=== PATIENT | male | born 1980 | race Caucasian/White ===

== ENCOUNTER 2017-03-28 19:24 | Emergency (ER) | payer BC, MEDICAID ==
[2017-03-28 19:36] VITALS: BP 127/97
[2017-03-28] MEDS ORDERED: CLONAZEPAM 1 MG TABLET PO ONE (19:41)
--- NOTE | 2017-03-28 19:46 | ER Document Report ---
ED General - General Chief Complaint: Other Stated Complaint: WITHDRAWL SYMPTOMS Time Seen by Provider: 03/28/17 19:34 Mode of Arrival: Ambulatory Information source: Patient TRAVEL OUTSIDE OF THE [place] IN LAST 30 DAYS: No - HPI Patient complains to provider of: anxiety, benzo withdrawal Onset/Duration: Gradual Quality of pain: No pain Associated symptoms: None Notes: Patient is a 36-year-old male presenting to the emergency room today complaining of anxiety attacks and possible benzodiazepine withdrawal, stating that he was previously prescribed Klonopin 1/2-1 mg 3 times a day by his primary care provider Erica Hernandez, his last prescription was filled on , which was for 90 tablets, he has made those 9 daily tablets last until now, he has a pill bottle with 1 pill remaining in it, but states he is having withdrawal symptoms including anxiety attacks, and crying spells, he denies any suicidal or homicidal ideations, he has seen a psychiatrist years ago but not recently because SCHUYLER Hernandez was taking care of this prescription for him, he reports that he is already a different office as she apparently changed practices and will no longer provide him with a prescription for this medication - Related Data Allergies/Adverse Reactions: saline syringe Adverse Reaction (Intermediate, Uncoded 03/28/17 19:31) Drops heart rate when pushed IV Past Medical History - General Information source: Patient - Social History Smoking Status: Unknown if Ever Smoked Family History: Reviewed & Not Pertinent - Past Medical History Cardiac Medical History: Denies: Hx Coronary Artery Disease, Hx Heart Attack, Hx Hypertension Pulmonary Medical History: Reports: Hx Asthma, Hx Bronchitis Denies: Hx COPD, Hx Pneumonia Neurological Medical History: Denies: Hx Cerebrovascular Accident, Hx Seizures Renal/ Medical History: Reports: Hx Kidney Stones. Denies: Hx Peritoneal Dialysis Musculoskeltal Medical History: Denies Hx Arthritis - Immunizations Hx Diphtheria, Pertussis, Tetanus Vaccination: Yes Review of Systems - Review of Systems Constitutional: No symptoms reported EENT: No symptoms reported Cardiovascular: No symptoms reported Respiratory: No symptoms reported Gastrointestinal: No symptoms reported Genitourinary: No symptoms reported Male Genitourinary: No symptoms reported Musculoskeletal: No symptoms reported Skin: No symptoms reported Hematologic/Lymphatic: No symptoms reported Neurological/Psychological: See HPI -: Yes All other systems reviewed and negative Physical Exam - Vital signs Vitals: Temp Pulse Resp BP Pulse Ox 97.5 F 108 H 22 H 127/97 H 98 03/28/17 19:31 03/28/17 19:31 03/28/17 19:31 03/28/17 19:31 03/28/17 19:31 Interpretation: Normal - General General appearance: Appears well, Alert - HEENT Head: Normocephalic, Atraumatic Eyes: Normal Pupils: PERRL - Respiratory Respiratory status: No respiratory distress Chest status: Nontender Breath sounds: Normal Chest palpation: Normal - Cardiovascular Rhythm: Regular Heart sounds: Normal auscultation Murmur: No - Abdominal Inspection: Normal Distension: No distension Bowel sounds: Normal Tenderness: Nontender Organomegaly: No organomegaly - Back Back: Normal, Nontender - Extremities General upper extremity: Normal inspection, Nontender, Normal color, Normal ROM , Normal temperature General lower extremity: Normal inspection, Nontender, Normal color, Normal ROM , Normal temperature, Normal weight bearing. No: Deloris's sign - Neurological Neuro grossly intact: Yes Cognition: Normal Orientation: AAOx4 Madeleine Coma Scale Eye Opening: Spontaneous [place] Coma Scale Verbal: Oriented Madeleine Coma Scale Motor: Obeys Commands [place] Coma Scale Total: 15 Speech: Normal Motor strength normal: LUE, RUE, LLE, RLE Sensory: Normal - Psychological Associated symptoms: Depressed, Tearful - Skin Skin Temperature: Warm Skin Moisture: Dry Skin Color: Normal Course - Re-evaluation Re-evalutation: 03/28/17 19:51 Patient denies suicidal or homicidal ideation, he has been taking Klonopin for several years related to anxiety, unfortunately his primary care provider who was previously providing prescriptions for this has changed practices and would not write him a prescription recently, cutting him off cold turkey, I did review patient's history on the [place] controlled substances website and there is a prescription in there from 01/27 for the 90 tablets of Klonopin, no other narcotic or controlled substance prescriptions have been written and at least the last 6 months, patient is tearful on exam but denies suicidal or homicidal ideation, I do not believe it is safe for this patient to come off of this medication cold turkey as it can lead to serious health concerns such as seizures, therefore patient was provided with a prescription for 30 tablets and given information for follow-up with mental health services, advised to return if any additional concerns, patient acknowledges understanding and agreement with this plan - Vital Signs Vital signs: Temp Pulse Resp BP Pulse Ox 97.5 F 108 H 22 H 127/97 H 98 03/28/17 19:31 03/28/17 19:31 03/28/17 19:31 03/28/17 19:31 03/28/17 19:31 Discharge - Discharge Clinical Impression: Anxiety Condition: Stable Disposition: HOME, SELF-CARE Instructions: Anxiety ([facility]), Benzodiazepines ([facility]) Additional Instructions: Follow up with your primary care provider and a mental health professional in one to 2 days. Return to the emergency room immediately if symptoms worsen or any additional concerns. Prescriptions: Clonazepam 0.5 - 1 mg PO TID PRN #30 tablet PRN Reason:
== END 2017-03-28 19:50 | disposition home or self-care (01) ==
LOC: ER 19:24
DX: F41.9 Anxiety disorder, unspecified (principal); F32.9 Major depressive disorder, single episode, unspecified; Z79.899 Other long term (current) drug therapy
CPT/HCPCS: 99283

== ENCOUNTER 2018-03-29 12:58 | Emergency (ER) | payer BC, MEDICAID, OTHER ==
[2018-03-29 13:09] VITALS: BP 115/79
[2018-03-29] MEDS ORDERED: LEVOFLOXACIN 750 MG/D5W RTU 750 MG/150 ML RTUPB IV ONE (14:04)
--- NOTE | 2018-03-29 14:07 | ER Document Report ---
ED Medical Screen (RME) - General Chief Complaint: Chest Congestion Stated Complaint: COUGH,CONGESTION Time Seen by Provider: 03/29/18 14:02 Mode of Arrival: Ambulatory Information source: Patient Notes: Patient presents with cough, shortness of breath and fever. He thinks he has a pneumonia. Patient denies chest pain, nausea, vomiting, abdominal pain or diarrhea. Cough is productive of yellow sputum. I have greeted and performed a rapid initial assessment of this patient. A comprehensive ED assessment and evaluation of the patient, analysis of test results and completion of the medical decision making process will be conducted by additional ED providers. TRAVEL OUTSIDE OF THE [place] IN LAST 30 DAYS: No - Related Data Allergies/Adverse Reactions: saline syringe Adverse Reaction (Intermediate, Uncoded 03/28/17 19:31) Drops heart rate when pushed IV Past Medical History - Social History Chew tobacco use (# tins/day): No Frequency of alcohol use: Rare Drug Abuse: None - Past Medical History Cardiac Medical History: Denies: Hx Coronary Artery Disease, Hx Heart Attack, Hx Hypertension Pulmonary Medical History: Reports: Hx Asthma, Hx Bronchitis Denies: Hx COPD, Hx Pneumonia Neurological Medical History: Denies: Hx Cerebrovascular Accident, Hx Seizures Renal/ Medical History: Reports: Hx Kidney Stones. Denies: Hx Peritoneal Dialysis Musculoskeltal Medical History: Denies Hx Arthritis - Immunizations Hx Diphtheria, Pertussis, Tetanus Vaccination: Yes Physical Exam - Vital signs Vitals: Temp Pulse Resp BP Pulse Ox 98.4 F 119 H 12 115/79 94 03/29/18 13:08 03/29/18 13:08 03/29/18 13:08 03/29/18 13:08 03/29/18 13:08 Course - Vital Signs Vital signs: Temp Pulse Resp BP Pulse Ox 98.4 F 119 H 12 115/79 94 03/29/18 13:08 03/29/18 13:08 03/29/18 13:08 03/29/18 13:08 03/29/18 13:08
[2018-03-29] MEDS ORDERED: ALBUTEROL SULFATE 0.083% NEB 2.5 MG/3 ML AMPUL NEB SCH (14:19)
--- NOTE | 2018-03-29 14:25 | RADIOLOGY REPORT (SQ) ---
EXAM DESCRIPTION: CHEST 2 VIEWS COMPLETED DATE/TIME: 03/29/2018 2:17 pm REASON FOR STUDY: cough COMPARISON: Two-view chest 08/15/2014 EXAM PARAMETERS: NUMBER OF VIEWS: two views TECHNIQUE: Digital Frontal and Lateral radiographic views of the chest acquired. RADIATION DOSE: NA LIMITATIONS: none FINDINGS: LUNGS AND PLEURA: No opacities, masses or pneumothorax. No pleural effusion. MEDIASTINUM AND HILAR STRUCTURES: No masses or contour abnormalities. HEART AND VASCULAR STRUCTURES: Heart normal size. No evidence for failure. BONES: No acute findings. HARDWARE: None in the chest. OTHER: No other significant finding. IMPRESSION: NO ACUTE RADIOGRAPHIC FINDING IN THE CHEST. TECHNICAL DOCUMENTATION: JOB ID: [id number] [employer]- All Rights Reserved Reading location - IP/workstation name: [email or web address]
== END 2018-03-29 17:52 | disposition left against medical advice (07) ==
LOC: ER 12:58
DX: R05 Cough (principal); R09.89 Other specified symptoms and signs involving the circulatory and respiratory systems; Z87.442 Personal history of urinary calculi
CPT/HCPCS: 71046; 99281